=== PATIENT | male | born 1950 | race Caucasian/White ===

== ENCOUNTER 2025-01-22 11:51 | Outpatient (CLI) | payer MEDICARE, BC ==
[2025-01-20 13:07] LABS: CREATININE 1.01 MG/DL (0.60-1.10); TOTAL CARBON DIOXIDE 29.7 MMOL/L (24-32); eGFR 72 ML/MIN
[~2025-01-22 11:51] MED LIST: iohexol 300mg/ml 100ml inj. ONE
--- NOTE | 2025-01-22 12:52 | RADIOLOGY REPORT ---
CLINICAL INFORMATION: Left knee pain. Neoplasm of unspecified behavior. Abnormal outside radiographs. Bone lesion in the left medial femoral condyle. TECHNIQUE: Axial CT images of the left knee were obtained after the uneventful administration of 100 mL Omnipaque 300 IV contrast. Coronal and sagittal reformatted images were obtained, reviewed, and stored. All CT scans at this medical facility are performed using dose modulation techniques as appropriate to a performed exam including the following: Automated exposure control was utilized; adjustment of the MA and/or KV according to patient size; and use of iterative reconstruction technique. CTDIvol = 7.62, 16.76, 0.14 mGy DLP = 740.85 mGy-cm COMPARISON: None FINDINGS: No acute fracture. Prominent subchondral cystic change at the posterior superior aspect of the medial femoral condyle with adjacent mild sclerosis, likely correlating with the abnormality seen on outside radiographs. No suspicious intraosseous lesion is seen. Mild joint space narrowing in the medial, lateral, and patellofemoral compartments. Small joint effusion. No significant soft tissue swelling is seen. Moderate fatty changes are seen in the medial head gastrocnemius muscle. IMPRESSION: 1. No acute bony abnormality. 2. Prominent subchondral cystic change at the posterior superior aspect of the medial femoral condyle, likely correlating with abnormality seen on prior radiographs. No suspicious intraosseous lesion. 3. Additional findings as described above.
== END 2025-01-22 23:59 | disposition home or self-care (01) ==
LOC: RAD 11:51
PROVIDERS: ATTEND Family Medicine Sports Medicine
DX: M25.562 Pain in left knee (principal); M77.9 Enthesopathy, unspecified; D49.2 Neoplasm of unspecified behavior of bone, soft tissue, and skin; M25.862 Other specified joint disorders, left knee; M43.16 Spondylolisthesis, lumbar region
CPT/HCPCS: 36415; 73702; 80053; Q9967